=== PATIENT | male | born 1990 | race Caucasian/White ===

== ENCOUNTER 2025-04-20 17:14 | Emergency (ER) | payer SELFPAY | END 2025-04-20 20:00 | disposition home or self-care (01) | LOC: MW.ED 17:14 | DX: S93.402A Sprain of unspecified ligament of left ankle, initial encounter (principal); M54.17 Radiculopathy, lumbosacral region; M48.061 Spinal stenosis, lumbar region without neurogenic claudication; M25.78 Osteophyte, vertebrae; Z86.16 Personal history of COVID-19; Z79.899 Other long term (current) drug therapy; W18.30XA Fall on same level, unspecified, initial encounter | CPT/HCPCS: 72131; 73610; 99284; A9270; J8540 ==